=== PATIENT | female | born 1990 | race Caucasian/White ===

== ENCOUNTER 2017-04-01 19:46 | Emergency (ER) | payer BC, OTHER ==
[2017-04-01 20:41] VITALS: BP 116/79
--- NOTE | 2017-04-01 20:52 | UC ---
Neck Pain HPI - HPI Summary HPI Summary: left side neck pain x 2 days pain radiates down her back no numbness or tingling of the upper ext. - History of Current Complaint Chief Complaint: UCBackPain Stated Complaint: NECK PAIN Time Seen by Provider: 04/01/17 20:45 Hx Obtained From: Patient Hx Last Menstrual Period: 03/31/17 ?: No Onset/Duration Of Injury/Symptoms: Days - 2 Mechanism Of Injury: No Known Trauma Onset/Duration: Gradual Onset, Lasting Days - 2, Still Present Severity: Moderate Location: Discrete At: - left side neck Character: Aching, Stiff Aggravating Factors: Position, Movement Alleviating Factors: Nothing Associated Signs & Symptoms: Positive: Negative - Allergies/Home Medications Allergies/Adverse Reactions: Allergies Allergy/AdvReac Type Severity Reaction Status Date / Time Clindamycin Allergy Severe Diarrhea Verified 04/01/17 20:42 Metronidazole [From Flagyl] Allergy Unknown Unknown Verified 04/01/17 20:42 Reaction Details ANTI NAUSEA Allergy Severe RED FACE. Uncoded 04/01/17 20:42 INVOLENTARY MUSCLE CONTRACTIONS. Home Medications: Home Medications Ibuprofen TAB* [Motrin TAB* 600 MG] 600 mg PO Q6H PRN 04/01/17 [History Confirmed 04/01/17] PMH/Surg Hx/FS Hx/Imm Hx Previously Healthy: Yes - Surgical History Surgical History: Yes Surgery Procedure, Year, and Place: WISDOM TEETH. T&A - Family History Known Family History: Negative: Respiratory Disease - Social History Alcohol Use: Occasionally Substance Use Type: None Smoking Status (MU): Never Smoked Tobacco - Immunization History Most Recent Influenza Vaccination: no Review Of Systems Constitutional: Positive: Negative Skin: Positive: Negative Eyes: Positive: Negative ENT: Positive: Negative Respiratory: Positive: Negative All Other Systems Reviewed And Are Negative: Yes Physical Exam Triage Information Reviewed: Yes Appearance: Well-Appearing, No Pain Distress, Well-Nourished Vital Signs: Initial Vital Signs Temp 97.8 F 04/01/17 20:37 Pulse 68 04/01/17 20:37 Resp 14 04/01/17 20:37 BP 116/79 04/01/17 20:37 Pulse Ox 100 04/01/17 20:37 Vital Signs Reviewed: Yes Eyes: Positive: Conjunctiva Clear ENT: Positive: Normal ENT inspection, Hearing grossly normal, Pharynx normal Neck exam: Normal Neck: Positive: Tenderness @ - left side, Other: - limited ROM on flexion , extension, rotation to left Respiratory Exam: Normal Respiratory: Positive: Chest non-tender, Lungs clear, Normal breath sounds Cardiovascular: Positive: RRR, No Murmur, Pulses Normal Neck Pain Course/Dx - Differential Dx/Diagnosis Provider Diagnoses: neck strain Discharge - Discharge Plan Condition: Stable Disposition: HOME Prescriptions: Cyclobenzaprine TAB* [Flexeril 10 MG TAB*] 10 mg PO BID #20 tab Naproxen [Naproxen 500 mg] 500 mg PO BID #20 tab Patient Education Materials: Acute Neck Pain (ED) Forms: *Work Release Referrals: Moise CORTES,Ashish Oliver [Primary Care Provider] - 7 Days
== END 2017-04-01 20:59 | disposition home or self-care (01) ==
LOC: UCCORT 19:46
DX: S16.1XXA Strain of muscle, fascia and tendon at neck level, initial encounter (principal); X58.XXXA Exposure to other specified factors, initial encounter; Y93.9 Activity, unspecified; Y92.9 Unspecified place or not applicable; Z88.1 Allergy status to other antibiotic agents; Z88.8 Allergy status to other drugs, medicaments and biological substances
CPT/HCPCS: 99212; G0463

== ENCOUNTER 2018-01-04 11:05 | Emergency (ER) | payer OTHER ==
[2018-01-04 11:19] VITALS: BP 110/51
--- NOTE | 2018-01-04 12:50 | UC ---
Hip/Pelvis Pain - HPI Summary HPI Summary: patient c/o pelvic pain since 1am this morning after vaginal sexual intercourse , states she vomited then and found a comfortable position to sleep after which she woke up several hours later still with the pain, which worsens with movement. SHe states it feels like an ovarian cyst rupture, which she has had before but the pain is persistent. She denies any discharge or dysuria after or prior to intercourse, denies chills or fever. The pain extends to the perineum and anal area. She states pain is 5/10 at rest and 9/10 with movement - History Of Current Complaint Chief Complaint: UCAbdominalPain Stated Complaint: ABD PAIN Time Seen by Provider: 01/04/18 12:03 Hx Obtained From: Patient Hx Last Menstrual Period: 12/20 - 12/24/17 ?: No Onset/Duration: Sudden Onset, Lasting Hours Timing: Constant Severity Initially: Moderate Severity Currently: Severe Pain Intensity: 9 Character Of Pain: Dull, Aching - pressure Alleviating Factor(s): Rest Associated Signs And Symptoms: Positive: Negative - Risk Factors Septic Arthritis Risk Factor: Negative - Allergies/Home Medications Allergies/Adverse Reactions: Allergies Allergy/AdvReac Type Severity Reaction Status Date / Time clindamycin Allergy Diarrhea Verified 01/04/18 11:11 metronidazole [From Flagyl] Allergy Unknown Verified 01/04/18 11:11 Reaction Details "Anti Nausea" med Allergy See Comment Uncoded 01/04/18 11:11 Home Medications: Home Medications NK [No Home Medications Reported] 01/04/18 [History Confirmed 01/04/18] PMH/Surg Hx/FS Hx/Imm Hx Previously Healthy: Yes - Surgical History Surgical History: Yes Surgery Procedure, Year, and Place: WISDOM TEETH. T&A - Family History Known Family History: Negative: Respiratory Disease - Social History Alcohol Use: Occasionally Substance Use Type: None Smoking Status (MU): Never Smoked Tobacco - Immunization History Most Recent Influenza Vaccination: no Review of Systems Genitourinary: Vaginal/Penile Pain All Other Systems Reviewed And Are Negative: Yes Physical Exam Triage Information Reviewed: Yes Appearance: Well-Appearing, No Pain Distress, Well-Nourished Vital Signs: Initial Vital Signs Temp 98.9 F 01/04/18 11:12 Pulse 68 01/04/18 11:12 Resp 14 06/24/18 11:12 BP 110/51 01/04/18 11:12 Pulse Ox 100 01/04/18 11:12 Vital Signs Reviewed: Yes Eyes: Positive: Conjunctiva Clear ENT: Positive: Pharynx normal Neck: Positive: Supple Respiratory: Positive: Chest non-tender Cardiovascular: Positive: Pulses Normal, Brisk Capillary Refill Abdomen Description: Positive: Nontender, No Organomegaly, Soft Pelvic Exam: Positive: External Exam Normal, Speculum Exam Normal, Tender w/ Cervical Motion, Tender Adnexa - adnexal mass right with tenderness Musculoskeletal: Positive: Strength Intact, ROM Intact, No Edema Hip Injury Course/Dx - Course Course Of Treatment: Patient has acute pelvic pain, with the onset of intercourse. Transfer to ER, instructed patient to go to [facility] for further testing - Differential Dx/Diagnosis Provider Diagnoses: acute pelvic pain Discharge - Sign-Out/Discharge Documenting (check all that apply): Discharge/Admit/Transfer - Discharge Plan Condition: Guarded Disposition: TRANS HIGHER LVL OF CARE FAC Patient Education Materials: Pelvic Pain in Women (ED) Referrals: Moise CORTES,Ashish Oliver [Primary Care Provider] - Additional Instructions: please go to [facility] ER due to pelvic pain for further testing - Billing Disposition and Condition Condition: GUARDED Disposition: Trans Higher Lvl of Care Fac
--- NOTE | 2018-01-05 15:34 | UC ---
- Progress Note Progress Note: neg kvng, neg karin no change j 01/05/18 Discharge - Sign-Out/Discharge Documenting (check all that apply): Post-Discharge Follow Up - Discharge Plan Condition: Guarded Disposition: TRANS HIGHER LVL OF CARE FAC Patient Education Materials: Pelvic Pain in Women (ED) Referrals: Moise CORTES,Ashish Oliver [Primary Care Provider] - Additional Instructions: please go to [facility] ER due to pelvic pain for further testing - Billing Disposition and Condition Condition: GUARDED Disposition: Trans Higher Lvl of Care Fac
== END 2018-01-04 12:55 | disposition short-term general hospital (02) ==
LOC: UCCORT 11:05
DX: R10.2 Pelvic and perineal pain (principal); Z88.1 Allergy status to other antibiotic agents
CPT/HCPCS: 81003; 84702; 87480; 87491; 87510; 87591; 87661; 99212; G0463